=== PATIENT | female | born 1955 | race Caucasian/White ===

== ENCOUNTER 2024-03-06 10:44 | Day surgery (SDC) | payer MEDICARE, SELFPAY ==
[2024-02-29 14:44] VITALS: BMI 39.6
--- NOTE | 2024-03-03 10:32 | P.CONAN_ITS ---
Documented by User: Sabrina Simmons NP 03/03/24 10:33 HPI - Anesthesia Eval Consult details Narrative: 68yo F for Bilateral Blepharoplasty PMFSH Past Medical History Medical History Synovial cyst Pulmonary hypertension Prediabetes Paroxysmal supraventricular tachycardia OAB (overactive bladder) LESLY on CPAP Meningioma Low serum vitamin D IBS (irritable bowel syndrome) Hypertensive retinopathy of both eyes Hyperlipidemia Hepatic steatosis Grade II diastolic dysfunction Depression Chronic interstitial cystitis Arthritis Allergic rhinitis Surgical History Surgical History History of total left knee replacement Hx of repair of right rotator cuff History of total right knee replacement (TKR) Hx of colonoscopy Social History Social History Patient Tobacco Use Status: Former Tobacco user Meds Allergies Allergy/AdvReac Type Severity Reaction Status Date / Time nitrofurantoin [Macrodantin] Allergy Unknown flu like Verified 03/06/24 12:29 symptoms sulfamethoxazole Allergy Rash Verified 03/06/24 12:29 [From Bactrim] trimethoprim [From Bactrim] Allergy Rash Verified 03/06/24 12:29 Home Medications ?Medication ?Instructions ?Recorded ?Confirmed ?Last Taken ?Type atorvastatin 20 mg tablet 20 mg PO DAILY 02/29/24 02/29/24 Unknown History fluticasone propionate 50 intranasal 02/29/24 02/29/24 Unknown History mcg/actuation nasal spray,suspension (Flonase Allergy Relief) tolterodine 2 mg capsule,extended 2 mg PO DAILY 02/29/24 02/29/24 Unknown History release 24 hr venlafaxine 150 mg 150 mg PO DAILY 02/29/24 02/29/24 Unknown History capsule,extended release 24 hr diltiazem HCl 180 mg 180 mg PO DAILY 03/06/24 03/06/24 Unknown History capsule,extended release 24 hr, controlled (DILT-XR) Exam Height,Weight and Vital Signs: Height 4 ft 11.84 in Weight 91.5 kg Assessment and Plan Assessment Anesthesia Assessment: Chart Reviewed Documented by User: Azul Mohr MD 03/06/24 12:51 [facility] Past Medical History Medical History Synovial cyst Pulmonary hypertension Prediabetes Paroxysmal supraventricular tachycardia OAB (overactive bladder) LESLY on CPAP Meningioma Low serum vitamin D IBS (irritable bowel syndrome) Hypertensive retinopathy of both eyes Hyperlipidemia Hepatic steatosis Grade II diastolic dysfunction Depression Chronic interstitial cystitis Arthritis Allergic rhinitis Surgical History Surgical History History of total left knee replacement Hx of repair of right rotator cuff History of total right knee replacement (TKR) Hx of colonoscopy History of Problems with Anesthesia: No Social History Social History Patient Tobacco Use Status: Former Tobacco user Meds Allergies Allergy/AdvReac Type Severity Reaction Status Date / Time nitrofurantoin [Macrodantin] Allergy Unknown flu like Verified 03/06/24 12:29 symptoms sulfamethoxazole Allergy Rash Verified 03/06/24 12:29 [From Bactrim] trimethoprim [From Bactrim] Allergy Rash Verified 03/06/24 12:29 Home Medications ?Medication ?Instructions ?Recorded ?Confirmed ?Last Taken ?Type atorvastatin 20 mg tablet 20 mg PO DAILY 02/29/24 02/29/24 Unknown History fluticasone propionate 50 intranasal 02/29/24 02/29/24 Unknown History mcg/actuation nasal spray,suspension (Flonase Allergy Relief) tolterodine 2 mg capsule,extended 2 mg PO DAILY 02/29/24 02/29/24 Unknown History release 24 hr venlafaxine 150 mg 150 mg PO DAILY 02/29/24 02/29/24 Unknown History capsule,extended release 24 hr diltiazem HCl 180 mg 180 mg PO DAILY 03/06/24 03/06/24 Unknown History capsule,extended release 24 hr, controlled (DILT-XR) Exam Airway Mallampati Class: III TM Dist: >3cm Neck ROM: Full Loose/Missing/Broken Teeth: No Heart: RRR Lungs: CTA Assessment and Plan Assessment Anesthesia Assessment: Anesthesia Plan Discussed Final Anesthetic Review History of Problems with Anesthesia: No NPO: Yes ASA Class: III Final Preanesthetic Review: Meds/Allgs Chart Reviewed, Consent Obtained/Reviewed and Anes Risks/Benef Reviewed Patient Risk: Intermediate Procedure Risk: Low Anesthetic Plan Anesthetic Plan: MAC: Disposition: Standard PACU
[2024-03-06 12:31] VITALS: BP 128/71; PULSE 70; RESP 15; TEMP 37.2; O2SAT 97
[2024-03-06] MEDS: Lactated Ringers 500 ML 50 ML IV (12:34)
--- NOTE | 2024-03-06 13:22 | MHC.SHP ---
Pre-Procedural Eval Section A - 24 Hr Update-Section A only Date of Service: 03/06/24 The patient is an INPATIENT: No Changes since office visit: No Cold of Flu in the past 2 weeks, No New Medical Problems, No Changes in Medication and No Patient answered all questions The patient has been examined within 24 hours of the surgical procedure. The History & Physical has been completed within 30 days and I have reviewed it.: Yes Section B - Complete if H&P > 30 days Chief Complaint: Dermatochalasis of R and L upper eyelid Allergies: Allergies Allergy/AdvReac Type Severity Reaction Status Date / Time nitrofurantoin [Macrodantin] Allergy Unknown flu like Verified 03/06/24 12:29 symptoms sulfamethoxazole Allergy Rash Verified 03/06/24 12:29 [From Bactrim] trimethoprim [From Bactrim] Allergy Rash Verified 03/06/24 12:29 Plan Diagnosis/Plan: Unchanged I have reviewed the history and physical and performed a pertinent physical examination on my patient. No changes have occurred unless specified. Time Spent With Patient Time: Total time managing care of this patient today ____ minutes.
--- NOTE | 2024-03-06 13:22 | HO.PNOPHT ---
Ophthalmology Procedure Procedure Date of Service: 03/06/24 Ophthalmology Viscoelastic: Not Applicable Ophthalmology Lenses: Not Applicable Procedure Notes: PREOPERATIVE DIAGNOSIS: Decreased visual field secondary to dermatochalasia POSTOPERATIVE DIAGNOSIS: Same PROCEDURE: Bilateral Blepharoplasty, upper eyelids SURGEON: Rito August M.D. ANESTHESIA: Local with sedation ESTIMATED BLOOD LOSS: None COMPLICATIONS: None After obtaining informed consent, the patient was brought to the operating room and placed in supine position. After adequate sedation per Anesthesia, the eyes were prepped and draped in the usual sterile fashion. Attention was directed to the right eye where a double pinch test was completed to assure excess tissue was not removed from the upper lid. The margin was marked at the proposed incision sites. The left eye was done in a similar fashion. 2% Lidocaine with epinephrine was then instilled subcutaneously along the margin of the pre-marked skin incisions. #15 scalpel blade was then utilized to create the incisions. Using a combination of sharp and blunt dissection with Melissa scissors, the epidermis was removed. Hemostasis was achieved with cautery. 6-0 plain suture was then utilized to close the incision site. Attention was directed to the left upper lid where subcutaneous 2% with Epinephrine Lidocaine was instilled along the pre-marked areas. A #15 scalpel blade was then utilized to create the incisions followed by sharp and blunt dissection with Melissa scissors to remove the overlying epidermis. Hemostasis was achieved with cautery, followed by closure with 6-0 plain suture. The patient tolerated the procedure well. The patient will be followed up in the a.m. Topical antibiotic ointment was instilled over the incision sites and ice as tolerated for 48 hours.
[2024-03-06 14:37] VITALS: BP 147/71; PULSE 74; RESP 18; TEMP 36.7; O2SAT 96
== END 2024-03-06 14:52 | disposition home or self-care (01) ==
PROVIDERS: PCP Nurse Practitioner Family; Visit Provider Ophthalmology
PROC: (CPT 15823; principal; 2024-03-06 13:00)
DX: H02.831 Dermatochalasis of right upper eyelid (principal); H02.834 Dermatochalasis of left upper eyelid; H54.7 Unspecified visual loss; G47.33 Obstructive sleep apnea (adult) (pediatric); I10 Essential (primary) hypertension; E11.319 Type 2 diabetes mellitus with unspecified diabetic retinopathy without macular edema; Z79.51 Long term (current) use of inhaled steroids; Z79.899 Other long term (current) drug therapy; Z99.89 Dependence on other enabling machines and devices; Z88.1 Allergy status to other antibiotic agents; Z87.891 Personal history of nicotine dependence
CPT/HCPCS: 15823; J2250; J3010